=== PATIENT | male | born 1945 | race African-American/Black ===

== ENCOUNTER 2017-04-19 20:27 | Emergency (ER) | payer OTHER ==
[~2017-04-19] VITALS: Ht 170.2 cm; Wt 79.8 kg
[~2017-04-19 20:27] MED LIST: ADULT LOW DOSE81 MG PO; ALDACTONE25 MG PO; AMBIEN 5 MG TABL5 M1 PO; AMLODIPINE BESY10 MG PO; ANUSOL-HC30 GM RC; ARICEPT 5 MG TAB5 MG PO; ASPIR 8181 MG PO; ASPIRIN81 M2 PO; ATIVAN0.5 MG PO; AVODART0.5 MG PO; AZITHROMYCIN 2250 MG PO; CARAFATE 1 GM TA1 G1 PO; CARDURA1 MG PO; CARVEDILOL3.125 MG PO; CHLORTHALIDONE25 MG PO; CIPRO250 M1 PO; CITRUCEL CLEAR539 G1 PO; COLACE 100 MG100 MG PO; COZAAR 50 MG TA50 M1 PO; COZAAR 50 MG TA50 MG; DIAZEPAM 5 MG5 M1 PO; DOC-Q-LACE; DOXAZOSIN MESYLA1 GM PO; DOXEPIN 25 MG C25 MG PO; EAR WAX DROPS15 ML OT; ENALAPRIL MALEA20 MG PO; FINASTERIDE5 MG PO; FLONASE 0.05%50 MCG NASAL; FUROSEMIDE 40 M40 M1 PO; HEMORRHOIDAL HC25 MG; HYDRALAZINE 2525 M1 GT; HYDRALAZINE 2525 M1 PO; HYDRALAZINE 2525 MG PO; HYDROCHLOROTH12.5 MG PO; HYDROCODONE-AP1 EAC6 PO; HYDROXYZINE HCL10 M1; HYDROXYZINE HCL25 M2 PO; IRON325 PO; LABETALOL PO; LASIX 40 MG TAB40 M1 PO; LASIX 40 MG TAB40 M2 PO; LATANOPROST 0.2.5 ML OPHTHALMIC; LIDOCAINE VISC100 ML RECTAL; LIPITOR 10 MG10 M1 PO; LIPITOR10 MG PO; LISINOPRIL20 MG PO; LISINOPRIL40 MG; LISINOPRIL40 MG PO; LORATIDINE 10 M10 M1 PO; LORTAB 5-500 T1 EAC1 PO; MEDROLDOSEPACK PO; MELATONIN3 MG PO; MICONAZOLE NITR45 G1; MIRALAX17 GM PO; MIRALAX255 GM PO; NAMENDA XR21 MG PO; NAPROSYN500 MG PO; NEURONTIN 300300 M1 PO; NEXIUM 40 MG CA40 M1 PO; NEXIUM40 MG PO; NORCO 5-325 TA1 EACH PO; NORVASC10 MG PO; NORVASC5 MG PO; NYSTATIN 1100000 U/M; PAROXETINE HCL10 MG PO; PATADAY2.5 ML OPHTHALMIC; PERCOCET 7.5-31 EACH PO; PHENERGAN 25 MG25 MG PO; PINDOLOL10 MG PO; POLYETHYLENE G255 GM PO; PROMETHAZINE-C120 ML PO; PROSCAR 5MG TABL5 M1 PO; PROSCAR 5MG TABL5 MG PO; PROTONIX40 M1 PO; RANITIDINE 150150 M1 PO; RAPAFLO8 MG; RAPAFLO8 MG PO; REGLAN 10 MG TA10 MG PO; RESTORIL15 MG PO; TAMSULOSIN HCL0.4 MG PO; TESSALON200 MG PO; TOVIAZ8 MG PO; TRAMADOL 50 MG50 MG PO; TRIAMCINOLONE A80 G2 PER TUBE; TUMS CHEWA500 MG/11 PO; TYLENOL PM EX-1 EACH PO; TYLENOL325 MG PO; VALIUM2 MG; VALIUM2 MG PO; VALIUM5 MG PO; VENTOLIN HFA 1818 GM INH; VESICARE10 M1 PO; VITAMIN B-12500 MCG PO; VITAMIN D-32000 UNIT PO; VITAMIN D1000 UNI1 PO; VITAMIN D31000 UNI2 PO; ZOFRAN ODT4 MG PO; ZPAK PO; ZYRTEC10 M5 PO; claritin PO
[2017-04-19] MEDS ORDERED: HYDROCODONE-AP1 EAC6 PO (22:13)
[2017-04-19 22:30] VITALS: BP 142/66
[2017-04-19] MEDS ORDERED: APAP650 PO (23:27)
== END 2017-04-20 01:00 | disposition home or self-care (01) ==
LOC: ER 20:27
DX: S52.511A Displaced fracture of right radial styloid process, initial encounter for closed fracture (principal); S09.90XA Unspecified injury of head, initial encounter; W19.XXXA Unspecified fall, initial encounter; Y93.89 Activity, other specified; Y92.89 Other specified places as the place of occurrence of the external cause; Y99.8 Other external cause status; I12.9 Hypertensive chronic kidney disease with stage 1 through stage 4 chronic kidney disease, or unspecified chronic kidney disease; N18.3 Chronic kidney disease, stage 3 (moderate); F32.9 Major depressive disorder, single episode, unspecified; E11.22 Type 2 diabetes mellitus with diabetic chronic kidney disease; M19.90 Unspecified osteoarthritis, unspecified site; K21.9 Gastro-esophageal reflux disease without esophagitis; M17.11 Unilateral primary osteoarthritis, right knee; F03.90 Unspecified dementia, unspecified severity, without behavioral disturbance, psychotic disturbance, mood disturbance, and anxiety; Z88.0 Allergy status to penicillin; Z88.2 Allergy status to sulfonamides

== ENCOUNTER 2017-08-07 21:30 | Emergency (ER) | payer OTHER ==
[~2017-08-07] VITALS: Ht 170.2 cm; Wt 79.8 kg
[~2017-08-07 21:30] MED LIST changes: +APAP650 PO
[2017-08-07] MEDS ORDERED: NYAMYC15 GM TOP (22:18)
[2017-08-07 22:48] LABS: URINE BILIRUBIN NEGATIVE (Negative); URINE BLOOD NEGATIVE (Negative); URINE CLARITY CLEAR; URINE COLOR YELLOW; URINE GLUCOSE-RANDOM* NEGATIVE (Negative); URINE KETONES NEGATIVE (Negative); URINE NITRITE-REFLEX NEGATIVE (Negative); URINE PROTEIN (DIPSTICK) 1+ (Negative); URINE SPECIFIC GRAVITY 1.015 (1.005-1.035); URINE UROBILINOGEN 0.2 E.U./dl (0.2-1.0)
[2017-08-07 22:49] LABS: URINE LEUKOCYTES-REFLEX 1+ (Negative)
[2017-08-07 22:59] LABS: BACTERIA-REFLEX None Seen /HPF (None Seen); CASTS None Seen /LPF (None Seen); CRYSTALS None Seen /LPF (None Seen); MUCUS None Seen strn/LPF (None Seen); SQUAMOUS None Seen /LPF (0-3); URINE RBC None Seen /HPF (0-2); URINE WBC-REFLEX 0-5 Rare /HPF (0-5)
[2017-08-07 23:20] VITALS: BP 125/60
== END 2017-08-07 23:23 | disposition home or self-care (01) ==
LOC: ER 21:30
PROVIDERS: Emergency Medicine
DX: B37.2 Candidiasis of skin and nail (principal); I12.9 Hypertensive chronic kidney disease with stage 1 through stage 4 chronic kidney disease, or unspecified chronic kidney disease; E11.22 Type 2 diabetes mellitus with diabetic chronic kidney disease; N18.3 Chronic kidney disease, stage 3 (moderate); N40.0 Benign prostatic hyperplasia without lower urinary tract symptoms; I25.10 Atherosclerotic heart disease of native coronary artery without angina pectoris; E78.5 Hyperlipidemia, unspecified; K21.9 Gastro-esophageal reflux disease without esophagitis; Z88.0 Allergy status to penicillin; Z88.2 Allergy status to sulfonamides

== ENCOUNTER 2017-09-05 19:44 | Emergency (ER) | payer OTHER ==
[~2017-09-05] VITALS: Ht 170.2 cm; Wt 80.7 kg
[~2017-09-05 19:44] MED LIST changes: +NYAMYC15 GM TOP
[2017-09-05 19:45] VITALS: BP 128/58
== END 2017-09-05 20:46 | disposition home or self-care (01) ==
LOC: ER 19:44
DX: M79.652 Pain in left thigh (principal); E11.22 Type 2 diabetes mellitus with diabetic chronic kidney disease; I12.9 Hypertensive chronic kidney disease with stage 1 through stage 4 chronic kidney disease, or unspecified chronic kidney disease; N18.3 Chronic kidney disease, stage 3 (moderate); H40.9 Unspecified glaucoma; F32.9 Major depressive disorder, single episode, unspecified; I25.10 Atherosclerotic heart disease of native coronary artery without angina pectoris; E78.5 Hyperlipidemia, unspecified; M19.90 Unspecified osteoarthritis, unspecified site; K21.9 Gastro-esophageal reflux disease without esophagitis; Z88.0 Allergy status to penicillin; Z88.1 Allergy status to other antibiotic agents; W01.0XXA Fall on same level from slipping, tripping and stumbling without subsequent striking against object, initial encounter; Y93.89 Activity, other specified; Y92.89 Other specified places as the place of occurrence of the external cause; Y99.8 Other external cause status

== ENCOUNTER 2017-11-17 22:17 | Inpatient (IN) | payer OTHER ==
[~2017-11-17] VITALS: Ht 172.7 cm; Wt 82.0 kg
--- NOTE | ~2017-11-17 | HC ---
[facility] [place] [address] CONSULTATION Name[facility] Room #: 209-P [facility] IN M.R.#: [id number] Admission: 11/17/17 Attend Phys: Fuad Vail DO Discharge: 11/18/17 Date of : 47 Report #: [id number] THIS REPORT FOR: //name// CC: FAM unknown Fuad Vail REASON FOR CONSULTATION: Chronic kidney disease. REASON FOR THE PRESENTATION: Chest pain. HISTORY OF PRESENT ILLNESS: A 71-year-old with past medical history of chronic kidney disease, baseline creatinine around 2.5. He presented to the Emergency Room complaining of left-sided chest pain. This has been going on with him for the last 6 days. No nausea or vomiting. No radiation. He sees Dr. Scanlon in my clinic and he last saw him a couple of months ago. Creatinine at that time was 2.9. PAST MEDICAL HISTORY: 1. Chronic kidney disease. 2. Benign prostatic hypertrophy. 3. Diabetes mellitus. 4. Coronary artery disease. 5. Ulcerative colitis. ALLERGIES: PENICILLIN, SULFA. SOCIAL HISTORY: . Retired. No drug or alcohol abuse. FAMILY HISTORY: No known chronic kidney disease. MEDICATIONS: 1. Aspirin. 2. Losartan. 3. Carafate. 4. Chlorthalidone. REVIEW OF SYSTEMS: GENERAL: No fever or chills. CARDIOVASCULAR: Significant for chest pain, but no palpitation. PULMONARY: No cough or hemoptysis. GASTROINTESTINAL: No nausea or vomiting. GENITOURINARY: No frequency or urgency. SKIN: No rash or ulcerations. PHYSICAL EXAMINATION: GENERAL: He is alert, oriented, in no apparent distress. VITAL SIGNS: Blood pressure is 144/61, temperature 36.4. [facility] [address] [place] [address] CONSULTATION Name: [facility] WALSH [facility] Room #: 209-P [facility] IN M.R.#: [id number] Admission: 11/17/17 Attend Phys: Fuad Vail DO Discharge: 11/18/17 Date of : 47 Report #: [id number] HEAD AND NECK: No jugular venous distention or thyromegaly. CHEST: Clear to auscultation bilaterally. CARDIOVASCULAR: Regular, with no rub detected. ABDOMEN: Soft, nontender, no hepatosplenomegaly. LOWER EXTREMITIES: +2 edema. LABORATORY DATA: Reviewed. Creatinine is down to 2.6. Chest x-ray reviewed, no pulmonary edema. ASSESSMENT, IMPRESSION, PLAN: 1. Chronic kidney disease at baseline. 2. Hypertension. 3. Hyperlipidemia. 4. Nonspecific chest pain. 5. From the renal perspective, he is at his baseline. Continue with the same medications for now. 6. Resume his blood pressure medications. 7. Avoid nephrotoxins. 8. Nuclear studies to evaluate his chest pain. Further followup will be dictated accordingly. <ELECTRONICALLY SIGNED> By: Joel Miller MD 11/19/17 0817 1557 20 Joel Miller, /nt
--- NOTE | ~2017-11-17 | HC ---
[facility] [place] [address] CONSULTATION Name: RENETTA WALSH Room #: 209-P ADM IN M.R.#: [id number] Admission: 11/17/17 Attend Phys: Fuad Vail DO Discharge: Date of : 47 Report #: [id number] THIS REPORT FOR: //name// CC: FAM unknown Fuad Vail HISTORY OF PRESENT ILLNESS: The patient is a 71-year-old male originally from [place], has been in the [place] 30 years. He has lots of medical records here at [facility] with multiple ER visits. Followed by the [facility] and has seen Cardiology back in 2013. He has chronic kidney disease and his creatinine when he came in was 3.0, but he comes in with left-sided chest pain that he states has been relatively constant for 4 days now and still describing pain, although he seems very comfortable. There is some right shoulder issue in addition. He states his diabetes is diet controlled. He does take blood pressure medicine and cholesterol medicine he states. He does not recall the last cardiac workup. It looks like Cardiology saw him in 2013 in the hospital here. Does not appear to have an exertional component to this. He follows with Nephrology, Dr. Scanlon. No syncope or presyncope. HOME MEDICATIONS: Chlorthalidone 12.5, baby aspirin, losartan 50, vitamin D3, B12, Carafate. PAST MEDICAL HISTORY: Positive for chronic kidney disease stage 4, hypertension, diabetes diet controlled, BPH, history of cataracts and glaucoma, mild coronary disease from a cardiac catheterization in April 2013, ulcerative colitis with no recent GI bleeds, reflux, chronic pain. He ambulates with a cane due to some unsteadiness. DJD. ALLERGIES: PENICILLIN and SULFA. SOCIAL HISTORY: He is , 7 children. He is retired. No alcohol or tobacco use. FAMILY HISTORY: He notes is negative for premature coronary disease. REVIEW OF SYSTEMS: Essentially negative. Some nocturia and unsteadiness with a cane usage. PHYSICAL EXAMINATION: VITAL SIGNS: Blood pressure is 140/60, pulse is 60 and regular. HEENT: Eyes reveal xanthelasmas. Pharynx is clear. NECK: Shows preserved upstrokes without JVD or bruits. LUNGS: Clear. CARDIOVASCULAR: Regular rate and rhythm, S1, S2 without murmur or gallop. ABDOMEN: Soft, nontender. Does have slight tenderness in the midepigastric area. No HSM. [facility] [address] [place] [address] CONSULTATION Name: [facility] WALSH [facility] Room #: 209-P [facility] IN M.R.#: [id number] Admission: 11/17/17 Attend Phys: Fuad Vail DO Discharge: Date of : 47 Report #: [id number] EXTREMITIES: Reveal 1+ peripheral edema, more at the ankle and pedal area. SKIN: Warm and dry without any skin breakdown or ulcers. NEUROLOGIC: Intact. MUSCULOSKELETAL: Generalized arthritic changes. He does ambulate with the cane. ASSESSMENT: 1. Chest pain, I suspect noncardiac. 2. Hypertension. 3. Diabetes. 4. Hypercholesterolemia. Check lipid. 5. Degenerative joint disease. 6. Chronic kidney disease stage 4, creatinine 3.0, now 2.6. 7. Reflux. 8. Anemia. RECOMMENDATIONS AND PLAN: We will proceed with repeat echo Doppler to assess LV function, valvular status and LV. Nuclear stress testing, 50% LAD lesion from a catheterization in March 2013. Although this does not necessarily appear to be cardiac, but do need to rule out significant progression of disease. Laboratory work is lipids are favorable. His LDL is 61. His total cholesterol is 111. His troponin is less than 0.04. We do not need to run anymore troponins. His creatinine is 3.0 and then 2.6. His sugar looks to be well controlled in addition. Liver function tests are normal. H and H is 11.6 and 34.8, white count 5.0. We will proceed with a nuclear stress test and echo Doppler and we will continue to follow with you. This has been discussed with the patient. I would cancel any further troponins. By: 0859 [id number] All Faulkner MD, [facility] /nt
--- NOTE | ~2017-11-17 | EKG ---
[address] [place] [address] ELECTROCARDIOGRAM REPORT Name: NICORENETTA PAIZWENDY Room #: PRE M.R.#: [id number] Admission: Attend Phys: Discharge: Date of : 47 Report #: [id number] THIS REPORT FOR: //name// [facility] ED Test Date: 2017-11-17 Test Time: 22:26:49 Pat Name: RENETTA WALSH Department: Room: Gender: Diet Consultant: DAVID : 1945 Requested By: Nelli Ly Order Number: [id number] MD: Kendell Otero Measurements Intervals [place] Rate: 52 P: 42 PA: 172 QRS: 48 QRSD: 93 T: 42 QT: 456 QTc: 424 Interpretive Statements Sinus rhythm Compared to ECG 12/17/2015 15:35:17 No significant changes Electronically Signed On 11-17-2017 23:00:09 CDT by Kendell Otero [email or web address] <ELECTRONICALLY SIGNED> By: Kendell Otero MD 11/17/17 2300 2226 Kendell Otero MD /CARLOS
--- NOTE | ~2017-11-17 | EKG ---
[address] [address] ELECTROCARDIOGRAM REPORT Name: RENETTA WALSH Room #: 209-P ADM IN M.R.#: [id number] Admission: 11/17/17 Attend Phys: Fuad Vail DO Discharge: Date of : 47 Report #: [id number] THIS REPORT FOR: //name// [facility] Test Date: 2017-11-18 Test Time: 05:38:59 Pat Name: RENETTA WALSH Department: Room: 209 P Gender: M Cardiology Clinical Nurse Specialist: PILI : 1945 Requested By: Allyson Frausto Order Number: [id number] MD: Kendell Otero Measurements Intervals [place] Rate: 48 P: 60 MT: 202 QRS: 75 QRSD: 96 T: 42 QT: 467 QTc: 418 Interpretive Statements Sinus bradycardia Compared to ECG 11/17/2017 22:26:49 Sinus rhythm no longer present Electronically Signed On 11-18-2017 7:32:59 CDT by Kendell Otero [email or web address] <ELECTRONICALLY SIGNED> By: Kendell Otero MD 11/18/17 0732 7 Kendell Otero MD /CARLOS
--- NOTE | ~2017-11-17 | 2DMMODE ---
[facility] [address] [place] [address] 2 D/M-MODE ECHOCARDIOGRAM Name: [facility] Room #: 209-P ADM IN M.R.#: [id number] Admission: 11/17/17 Attend Phys: Fuad Vail, Discharge: Date of : 47 Date of Service: 11/18/17 1049 Report #: [id number] THIS REPORT FOR: //name// APPROVED REPORT Study performed: 11/18/2017 09:27:44 EXAM: Comprehensive 2D, Doppler, and color-flow Echocardiogram Patient Location: Echo lab Room #: 209 Status: routine BSA: 1.91 HR: 53 bpm BP: 144/61 mmHg Rhythm: NSR Other Information Study Quality: Adequate Indications Dyspnea Chest Pain Hx: DM, HTN, HLD, CAD 2D Dimensions RVDd: 33.93 mm LVEF(%): 55.53 (>50%) IVSd: 12.27 (7-11mm) LVOT Diam: 20.49 (18-24mm) LVDd: 40.81 mm PWd: 10.80 (7-11mm) Ascending Ao: 40.30 (22-36mm) LVDs: 29.16 (25-40mm) Aortic Root: 38.91 mm Gonsalez's LVEF: 55.53 % Volumes Left Atrial Volume (Systole) Single Plane 4CH: 31.15 mL Single Plane 2CH: 33.71 mL LA ESV Index: 19.00 mL/m2 Aortic Valve AoV Peak Sonu.: 1.35 m/s AO Peak Gr.: 7.34 mmHg LVOT Max P.30 mmHg LVOT Max V: 1.25 m/s AYANNA Vmax: 3.05 cm2 AI Vmax: 2.69 m/s AI [place]: 1.38 m/s2 [facility] [place] [address] 2 D/M-MODE ECHOCARDIOGRAM Name: ARTHURBERNABERENETTA [facility] Room #: 209-P [facility] IN M.R.#: [id number] Admission: 11/17/17 Attend Phys: Fuad Vail, Discharge: Date of : 47 Date of Service: 11/18/17 1049 Report #: [id number] AI PHT: 566.01 ms Mitral Valve E/A Ratio: 0.8 MV Decel. Time: 277.20 ms MV E Max Sonu.: 0.74 m/s MV A Sonu.: 0.90 m/s MV PHT: 80.39 ms Pulmonary Valve PV Peak Sonu.: 0.72 m/s PV Peak Gr.: 2.05 mmHg Tricuspid Valve TR Peak Sonu.: 2.38 m/s RAP Estimate: 5.00 mmHg TR Peak Gr.: 22.74 mmHg PA Pressure: 28.00 mmHg Left Ventricle The left ventricle is normal size. There is normal left ventricular wall thickness. The left ventricular systolic function is normal. LVEF is 55-60%. Grade I - abnormal relaxation pattern. Right Ventricle The right ventricle is normal size. The right ventricular systolic function is normal. Atria The left atrium size is normal. The right atrium size is normal. Aortic Valve The Aortic valve is sclerotic. Mild aortic regurgitation. Eccentric jet. There is no aortic valvular stenosis. Mitral Valve Mild mitral annular calcification. Trace mitral regurgitation. No evidence of mitral valve stenosis. Tricuspid Valve The tricuspid valve is normal in structure. Mild tricuspid regurgitation. Pulmonic Valve Pulmonic valve is not well visualized, but appear grossly normal in structure. There is no pulmonic valvular regurgitation. [address] [address] 2 D/M-MODE ECHOCARDIOGRAM Name: NICORENETTA [facility] Room #: 209-P [facility] IN M.R.#: [id number] Admission: 11/17/17 Attend Phys: Fuad Vail, Discharge: Date of : 47 Date of Service: 11/18/17 1049 Report #: [id number] Great Vessels Aortic root is dilated at 3.9 cm. Ascending aorta is dilated at 4.0 cm. IVC is normal in size and collapses >50% with inspiration. Pericardium There is no pericardial effusion. <Conclusion> The left ventricle is normal size. LVEF is 55-60%. Grade I - abnormal relaxation pattern. The right ventricle is normal size. The left atrium size is normal. The Aortic valve is sclerotic. Mild aortic regurgitation. Eccentric jet. There is no aortic valvular stenosis. Trace mitral regurgitation. Mild tricuspid regurgitation. Aortic root is dilated at 3.9 cm. There is no pericardial effusion. <ELECTRONICALLY SIGNED> By: All Faulkner MD, FACC 11/18/17 1049 1049 1049 All Faulkner MD, FACC /INF
[2017-11-17 22:27] VITALS: BP 139/71
[2017-11-17 22:51] LABS: HEMATOCRIT 34.8 % (42.0-52.0); HEMOGLOBIN 11.6 gm/dL (14.0-18.0); MCH 31.6 pg (26.0-34.0); MCHC 33.2 g/dL (28.0-37.0); MCV 95.1 fL (80.0-100.0); PLATELET COUNT 202 thou/uL (150-400); RBC 3.66 mil/uL (4.50-6.00); RDW 13.6 % (10.5-14.5)
[2017-11-17 22:57] LABS: ANION GAP 6 mmol/L (7-16); BUN 55 mg/dL (7-18); CALCIUM 8.3 mg/dL (8.5-10.1); CHLORIDE 106 mmol/L (98-107); CO2 23 mmol/L (21-32); GLUCOSE 113 mg/dL (74-106); POTASSIUM 5.1 mmol/L (3.5-5.1); SODIUM 135 mmol/L (136-145)
[2017-11-17 23:06] LABS: ALBUMIN 3.3 g/dL (3.4-5.0); SGOT 24 U/L (15-37); SGPT 14 U/L (30-65); TOTAL BILIRUBIN 0.2 mg/dL (<0.1-1.0); TOTAL PROTEIN 6.8 g/dL (6.4-8.2); TROPONIN-I < 0.04 ng/mL (<0.06)
[2017-11-17 23:23] LABS: ABSOLUTE NEUTROPHILS 3.3 thou/uL (1.4-8.2); ANISOCYTOSIS SLIGHT
[2017-11-18] VITALS (7 sets, daily range): BP systolic 116–144; BP diastolic 52–69
[2017-11-18 05:16] LABS: ANION GAP 7 mmol/L (7-16); BUN 51 mg/dL (7-18); CALCIUM 8.3 mg/dL (8.5-10.1); CHLORIDE 109 mmol/L (98-107); CHOLESTEROL 111 mg/dL (<200); CO2 24 mmol/L (21-32); CREATININE 2.6 mg/dL (0.7-1.3); GLUCOSE 87 mg/dL (74-106); HDL CHOLESTEROL 36 mg/dL (>40); LDL CHOLESTEROL 61 mg/dL (<100); POTASSIUM 4.3 mmol/L (3.5-5.1); SODIUM 140 mmol/L (136-145); TC:HDL 3.1 Ratio (Not establshd); TRIGLYCERIDE 72 mg/dL (<150); VLDL 14 mg/dL (<40)
[2017-11-18 05:17] LABS: SERUM ASSESSMENT Clear
[2017-11-19 02:09] LABS: GLYCOHEMOGLOBIN (HGB A1C) 5.7 % (4.8-5.6)
== END 2017-11-18 19:47 | disposition home or self-care (01) | DRG 313 ==
LOC: ER 22:17 → EROBS 23:36 → 2N 23:36
PROVIDERS: Nurse Practitioner Acute Care; Physician Assistant
DX: R07.89 Other chest pain (principal); N17.9 Acute kidney failure, unspecified; N18.4 Chronic kidney disease, stage 4 (severe); I12.9 Hypertensive chronic kidney disease with stage 1 through stage 4 chronic kidney disease, or unspecified chronic kidney disease; E78.5 Hyperlipidemia, unspecified; M19.90 Unspecified osteoarthritis, unspecified site; F03.90 Unspecified dementia, unspecified severity, without behavioral disturbance, psychotic disturbance, mood disturbance, and anxiety; E11.22 Type 2 diabetes mellitus with diabetic chronic kidney disease; I25.10 Atherosclerotic heart disease of native coronary artery without angina pectoris; D64.9 Anemia, unspecified; N40.0 Benign prostatic hyperplasia without lower urinary tract symptoms; H40.9 Unspecified glaucoma; F32.9 Major depressive disorder, single episode, unspecified; K21.9 Gastro-esophageal reflux disease without esophagitis; Z79.82 Long term (current) use of aspirin; Z79.899 Other long term (current) drug therapy; Z88.0 Allergy status to penicillin; Z88.2 Allergy status to sulfonamides

== ENCOUNTER 2017-12-08 16:38 | Emergency (ER) | payer OTHER ==
[~2017-12-08] VITALS: Ht 170.2 cm; Wt 80.7 kg
[2017-12-08 16:41] VITALS: BP 134/65
[2017-12-08] MEDS ORDERED: CLARITIN10 MG PO (17:58)
== END 2017-12-08 18:13 | disposition home or self-care (01) ==
LOC: ER 16:38
DX: L29.9 Pruritus, unspecified (principal); R07.9 Chest pain, unspecified; I12.9 Hypertensive chronic kidney disease with stage 1 through stage 4 chronic kidney disease, or unspecified chronic kidney disease; E11.22 Type 2 diabetes mellitus with diabetic chronic kidney disease; N18.3 Chronic kidney disease, stage 3 (moderate); I25.10 Atherosclerotic heart disease of native coronary artery without angina pectoris; F32.9 Major depressive disorder, single episode, unspecified; E78.5 Hyperlipidemia, unspecified; K21.9 Gastro-esophageal reflux disease without esophagitis; Z88.0 Allergy status to penicillin; Z88.2 Allergy status to sulfonamides

== ENCOUNTER 2018-06-08 16:49 | Emergency (ER) | payer OTHER ==
[~2018-06-08] VITALS: Ht 170.2 cm; Wt 81.7 kg
[~2018-06-08 16:49] MED LIST changes: +CLARITIN10 MG PO
[2018-06-08 16:53] VITALS: BP 116/67
[2018-06-08] MEDS ORDERED: PROTONIX40 M1 PO (17:12)
[2018-06-08] MEDS ORDERED: DOXEPIN 10 MG C10 MG PO (17:13)
[2018-06-08] MEDS ORDERED: NAMENDA 5 MG TAB5 M1 PO (17:13)
[2018-06-08] MEDS ORDERED: FINASTERIDE5 MG PO (17:13)
[2018-06-08] MEDS ORDERED: LIPITOR10 MG PO (17:14)
[2018-06-08] MEDS ORDERED: SENNA LAXATIVE1 EACH PO (17:14)
[2018-06-08] MEDS ORDERED: CELEXA20 MG PO (17:15)
[2018-06-08] MEDS ORDERED: IBUPROFEN 600600 M1 PO (17:43)
[2018-06-09] MEDS ORDERED: GUAIFEN-CODEINE10 ML PO (16:35)
[2018-06-09] MEDS ORDERED: MOBIC15 MG PO (16:35)
== END 2018-06-08 17:54 | disposition home or self-care (01) ==
LOC: ER 16:49
DX: J09.X2 Influenza due to identified novel influenza A virus with other respiratory manifestations (principal); I12.9 Hypertensive chronic kidney disease with stage 1 through stage 4 chronic kidney disease, or unspecified chronic kidney disease; E11.22 Type 2 diabetes mellitus with diabetic chronic kidney disease; N18.3 Chronic kidney disease, stage 3 (moderate); M19.90 Unspecified osteoarthritis, unspecified site; E78.5 Hyperlipidemia, unspecified

== ENCOUNTER 2018-06-09 15:28 | Emergency (ER) | payer OTHER ==
[~2018-06-09] VITALS: Ht 170.2 cm; Wt 81.7 kg
--- NOTE | ~2018-06-09 | EKG ---
[place] [address] [place] [address] ELECTROCARDIOGRAM REPORT Name: NICORENETTA Room #: ELLIS Egan#: [id number] Admission: 06/09/18 Attend Phys: Discharge: 06/09/18 Date of : 47 Report #: [id number] THIS REPORT FOR: //name// [facility] ED Test Date: 2018-06-09 Test Time: 15:55:05 Pat Name: RENETTA WALSH Department: Room: Gender: M Human Resources Consultant: : 1945 Requested By: Yeimi Jade Order Number: [id number] MD: Jemal Perales Measurements Intervals [place] Rate: 71 P: 44 ID: 150 QRS: 65 QRSD: 96 T: 50 QT: 394 QTc: 429 Interpretive Statements Sinus rhythm Early transition Nonspecific ST-T wave changes Compared to ECG 11/18/2017 05:38:59 Sinus bradycardia no longer present Electronically Signed On 06-09-2018 17:24:46 FOUNDER / CEO by Jemal Perales [email or web address] <ELECTRONICALLY SIGNED> By: Jemal Perales MD 06/09/18 1724 1555 1555 Jemal Perales MD /CARLOS
[~2018-06-09 15:28] MED LIST changes: +CELEXA20 MG PO; +DOXEPIN 10 MG C10 MG PO; +IBUPROFEN 600600 M1 PO; +NAMENDA 5 MG TAB5 M1 PO; +SENNA LAXATIVE1 EACH PO
[2018-06-09] MEDS ORDERED: MOBIC15 MG PO (16:35)
[2018-06-09] MEDS ORDERED: GUAIFEN-CODEINE10 ML PO (16:35)
[2018-06-09 16:41] VITALS: BP 147/69
== END 2018-06-09 17:08 | disposition home or self-care (01) ==
LOC: ER 15:28
DX: J09.X2 Influenza due to identified novel influenza A virus with other respiratory manifestations (principal); R05 Cough; M79.10 Myalgia, unspecified site; I12.9 Hypertensive chronic kidney disease with stage 1 through stage 4 chronic kidney disease, or unspecified chronic kidney disease; E11.22 Type 2 diabetes mellitus with diabetic chronic kidney disease; N18.3 Chronic kidney disease, stage 3 (moderate); F32.9 Major depressive disorder, single episode, unspecified; I25.10 Atherosclerotic heart disease of native coronary artery without angina pectoris; E78.5 Hyperlipidemia, unspecified; M19.90 Unspecified osteoarthritis, unspecified site; K21.9 Gastro-esophageal reflux disease without esophagitis; F03.90 Unspecified dementia, unspecified severity, without behavioral disturbance, psychotic disturbance, mood disturbance, and anxiety; M17.11 Unilateral primary osteoarthritis, right knee; Z88.0 Allergy status to penicillin; Z95.5 Presence of coronary angioplasty implant and graft; Z88.2 Allergy status to sulfonamides

== ENCOUNTER 2018-08-01 18:16 | Emergency (ER) | payer OTHER ==
[~2018-08-01] VITALS: Ht 170.2 cm; Wt 79.8 kg
[~2018-08-01 18:16] MED LIST changes: +GUAIFEN-CODEINE10 ML PO; +MOBIC15 MG PO
[2018-08-01 18:44] LABS: ABSOLUTE NEUTROPHILS 5.1 thou/uL (1.4-8.2); BASOPHILS 0.5 % (0.0-2.0); HEMATOCRIT 37.9 % (42.0-52.0); HEMOGLOBIN 12.5 gm/dL (14.0-18.0); MCH 31.3 pg (26.0-34.0); MONOCYTES 3.4 % (1.0-8.0); PLATELET COUNT 255 thou/uL (150-400); POLYS 75.1 % (36.0-66.0); RBC 3.99 mil/uL (4.50-6.00); RDW 14.5 % (10.5-14.5); WBC 6.7 thou/uL (4.0-11.0)
[2018-08-01 18:49] LABS: ANION GAP 14 mmol/L (7-16); BUN 66 mg/dL (7-18); CALCIUM 9.1 mg/dL (8.5-10.1); CHLORIDE 105 mmol/L (98-107); CO2 21 mmol/L (21-32); CREATININE 3.2 mg/dL (0.7-1.3); GLUCOSE 210 mg/dL (74-106); POTASSIUM 4.4 mmol/L (3.5-5.1); SODIUM 140 mmol/L (136-145)
[2018-08-01 19:01] LABS: ALBUMIN 3.6 g/dL (3.4-5.0); SGOT 17 U/L (15-37); SGPT 16 U/L (30-65); TOTAL BILIRUBIN 0.3 mg/dL (<0.1-1.0); TOTAL PROTEIN 7.6 g/dL (6.4-8.2); TROPONIN-I <0.06 ng/mL (<0.06)
[2018-08-01 20:50] VITALS: BP 122/67
--- NOTE | 2018-08-02 12:01 | EKG ---
[facility] [employer] [address] ELECTROCARDIOGRAM REPORT Name: NICORENETTA Room #: ELLIS Egan#: [id number] Admission: 08/01/18 Attend Phys: Discharge: 08/01/18 Date of : 47 Report #: [id number] THIS REPORT FOR: //name// [facility] ED Test Date: 2018-08-01 Test Time: 18:10:43 Pat Name: RENETTA WALSH Department: Room: Gender: M Pot Washer: : 1945 Requested By: Christy Borrero Order Number: [id number] MD: Josesito Conti Measurements Intervals [place] Rate: 87 P: 33 CA: 160 QRS: 47 QRSD: 92 T: -17 QT: 400 QTc: 482 Interpretive Statements Sinus rhythm Cannot rule out Inferior infarct, age indeterminate Compared to ECG 06/09/2018 15:55:05 Inferior Q waves are slightly more prominent Electronically Signed On 08-02-2018 12:01:34 MALTSTER by Josesito Conti [email or web address] <ELECTRONICALLY SIGNED> By: Josesito Conti MD, [facility] 08/02/18 1201 D: [id number] Josesito Conti MD, FACC /EPI
== END 2018-08-01 20:35 | disposition home or self-care (01) ==
LOC: ER 18:16
PROVIDERS: Physician Assistant
DX: R06.02 Shortness of breath (principal); I12.9 Hypertensive chronic kidney disease with stage 1 through stage 4 chronic kidney disease, or unspecified chronic kidney disease; E11.22 Type 2 diabetes mellitus with diabetic chronic kidney disease; N18.3 Chronic kidney disease, stage 3 (moderate); F32.9 Major depressive disorder, single episode, unspecified; E78.5 Hyperlipidemia, unspecified; K21.9 Gastro-esophageal reflux disease without esophagitis; F03.90 Unspecified dementia, unspecified severity, without behavioral disturbance, psychotic disturbance, mood disturbance, and anxiety; Z88.0 Allergy status to penicillin; Z88.2 Allergy status to sulfonamides

== ENCOUNTER 2019-08-30 19:25 | Inpatient (IN) | payer OTHER ==
[~2019-08-30] VITALS: Ht 261.6 cm; Wt 72.6 kg
[2019-08-30 19:35] VITALS: BP 116/65
[2019-08-30 21:41] LABS: ABSOLUTE NEUTROPHILS 5.5 thou/uL (1.4-8.2); EOSINOPHILS 1.1 % (0.0-3.0); HEMATOCRIT 37.3 % (42.0-52.0); HEMOGLOBIN 12.2 gm/dL (14.0-18.0); LYMPHOCYTES 14.9 % (24.0-44.0); MCH 31.1 pg (26.0-34.0); MCHC 32.7 g/dL (28.0-37.0); MONOCYTES 7.7 % (1.0-8.0); PLATELET COUNT 250 thou/uL (150-400); POLYS 75.3 % (36.0-66.0); RBC 3.93 mil/uL (4.50-6.00); RDW 14.4 % (10.5-14.5); WBC 7.3 thou/uL (4.0-11.0)
[2019-08-30 21:52] LABS: CALCIUM 9.2 mg/dL (8.5-10.1); CREATININE 7.9 mg/dL (0.7-1.3); POTASSIUM 3.5 mmol/L (3.5-5.1)
[2019-08-30 21:54] LABS: ALBUMIN 3.7 g/dL (3.4-5.0); TOTAL BILIRUBIN 0.4 mg/dL (<0.1-1.0)
[2019-08-30 23:04] LABS: URINE BILIRUBIN NEGATIVE (Negative); URINE BLOOD TRACE (Negative); URINE CLARITY CLEAR; URINE COLOR YELLOW; URINE GLUCOSE-RANDOM* NEGATIVE (Negative); URINE KETONES NEGATIVE (Negative); URINE LEUKOCYTES-REFLEX NEGATIVE (Negative); URINE NITRITE-REFLEX NEGATIVE (Negative); URINE PROTEIN (DIPSTICK) 2+ (Negative); URINE UROBILINOGEN 0.2 E.U./dl (0.2-1.0)
[2019-08-30 23:24] LABS: AMORPHOUS URATES Moderate /LPF (None Seen); BACTERIA-REFLEX 1-9 Few /HPF (None Seen); CASTS None Seen /LPF (None Seen); SQUAMOUS None Seen /LPF (0-3); URINE RBC 0-2 Rare /HPF (0-2); URINE WBC-REFLEX None Seen /HPF (0-5)
[2019-08-31 07:10] VITALS: BP 135/42
[2019-08-31 07:11] VITALS: BP 135/42
[2019-08-31 08:22] VITALS: BP 134/67
[2019-08-31 10:28] LABS: CALCIUM 9.1 mg/dL (8.5-10.1); CREATININE 7.2 mg/dL (0.7-1.3)
[2019-08-31 10:29] LABS: POTASSIUM 2.9 mmol/L (3.5-5.1)
[2019-08-31 11:10] LABS: URINE POTASSIUM-RANDOM* 17.5 mmol/L
[2019-08-31 16:45] VITALS: BP 131/59
--- NOTE | 2019-08-31 17:08 | NUR ---
Received pt from the ER pt is alert x 2 to 3 forgets his limitation. REfused FC insertion, strict I and O done uses the urinal. Max assists of 2 as per PT eval. per the pt he informed the ER of his generalized itching, informed MD medication given. Low K 2.9 informed MD replacements PO being done. Diet is well tolerated. POC followed.
[2019-08-31 20:46] VITALS: BP 112/53
--- NOTE | 2019-09-01 03:45 | NUR ---
Assumed pt care @1915. pt a&ox4 but can be forgetful and confused. pt used the urinal overnight and was incont on urine a few times. pt has pink urine with a few blood cloths in. v/s stable. no s/s of distress. will cont to monitor
[2019-09-01 06:11] LABS: CALCIUM 8.2 mg/dL (8.5-10.1); PHOSPHORUS 4.9 mg/dL (2.5-4.9)
[2019-09-01 06:22] LABS: CREATININE 6.2 mg/dL (0.7-1.3)
[2019-09-01 07:22] VITALS: BP 121/52
[2019-09-01 16:32] VITALS: BP 116/60
--- NOTE | 2019-09-01 16:42 | NUR ---
PT ADMITTED RELATED TO SEVERE CHRONIC BACK PAIN, UNABLE TO AMBULATE. CM REVIEWED CHART AND SPOKE WITH CARE TEAM. CM MET WITH PT AT BEDSIDE THIS DAY. PT IS A&O X3. CM ROLE INTRODUCED. PT INDICATED HE LIVES IN A HOUSE WITH HIS SPOUSE WITH 3 STEPS TO ENTER AND NONE INSIDE. 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 PT INDICATED HE HAS 8 HRS A DAY OR PD SERVICES THROUGH [facility] BUT THAT THEY DON'T DO ANYTHING. PT INDICATED HE IS INTERESTED IN A WC FOR HOME USE AND THAT HIS CAN'T CARE FOR HIM BECAUSE SHE IS DISABLED TOO BUT THAT HE WON'T GO FOR A POST ACUTE CARE STAY. PT STATES HE SEES DR. ROBLEDO AT [facility] IN [place]. CHART INDICATED THAT PT MAY AHVE BEEN ON SERVICE TREV JIMENEZ PTA. CM TO FOLLOW INDICATED WITH DC PLANNING.
[2019-09-01 19:26] VITALS: BP 132/56
--- NOTE | 2019-09-01 20:14 | NUR ---
Assumed patient care at 0715. Vital signs have been stable. Blood sugars have required minimal coverage of 3 units Lispro at Breakfast and Lunch. No Insulin coverage needed for Dinner. Patient has been eating well. He continues on Normal Saline at 60cc per hour. He is incontinent of urine but will try to use the urinal. Patient is max assist x's 2 at this time. He has requested and received Diphenhydramine 25mg x's 2 during this shift. One dose was given 4 hours after first dose as patient was scratching himself frantically all over. Dr Yañez notified of this. Order continues at q 6 hours despite patient's request. Report given to on-coming shift.
--- NOTE | 2019-09-02 07:44 | NUR ---
PROGRESS PT NON AMBULATORY UP WITH MAX OF 2 TO BSC LARGE BM THIS SHIFT, VOIDING PER URINAL. CONFUSED AND YELLING OUT AT TIMES CALLS OUT FREQUENTLY AND DOESN'T KNOW WHAT HE WANTS. IV ANTIBIOTICS GIVEN ORDERED. SKIN C/D/I. CONTINUE TO MONITOR
[2019-09-02 07:48] VITALS: BP 132/60
[2019-09-02 12:56] VITALS: BP 132/60
[2019-09-02 13:02] LABS: ALBUMIN 3.2 g/dL (3.4-5.0); CALCIUM 8.1 mg/dL (8.5-10.1); PHOSPHORUS 3.6 mg/dL (2.5-4.9); POTASSIUM 3.9 mmol/L (3.5-5.1)
[2019-09-02 13:34] LABS: CREATININE 5.1 mg/dL (0.7-1.3)
[2019-09-02 13:49] VITALS: BP 132/60
--- NOTE | 2019-09-02 13:57 | NUR ---
DISCHARGE PLANNING. DISCHARGE TO HOME WITH HOME HEALTH SERVICES. PATIENT HH REFERRAL, DISCHARGE HOME HEALTH ORDERS/DISCHARGE SUMMARY FAXED TO [facility] PER REQUEST. CALL PLACED TO [facility], SPOKE TO FLOR TO NOTIFY. FLOR TO FACILITATE.
--- NOTE | 2019-09-02 16:24 | NUR ---
Patient was Discharged back home with son at 1530. Patient's vital signs stable; he denies pain. Both son and patient verbalized an understanding to all Discharge Instructions prior to signing paperwork. Patient and son left with all belongings except patients cell phone, which they stated "we cannot find." POC followed.
--- NOTE | 2019-09-03 14:24 | HC ---
[facility] [address] [place] [address] CONSULTATION Name: RENETTA WALSH Room #: 463-P [facility] IN M.R.#: [id number] Admission: 08/30/19 Attend Phys: Angela Yañez Discharge: 09/02/19 Date of : 47 Report #: [id number] THIS REPORT FOR: cc: SIERRA Hartman family physician/PCP [facility] - Minnie family physician/PCP Joel Miller MD ~ CC: [facility] physician/PCP Angela Yañez REASON FOR CONSULTATION: Elevated creatinine. REASON FOR PRESENTATION: Not feeling well. Numerous other complaints. HISTORY OF PRESENT ILLNESS: This is a 73-year-old with history of end-stage renal disease due to progressive hypertensive arterionephrosclerosis. He has been in different facilities lately including [facility] where he has a left AV fistula and is in the process of being prepared for hemodialysis. He reported to our facility having many issues including knees pain, low back pain, itching allover, hurting with urination. He has no nausea or vomiting. He has no fever or chills. He has no uremic symptoms. On presentation and as expected, his BUN and creatinine were elevated. Unfortunately, the patient has very poor social support. The patient was admitted to further evaluate his condition and I was consulted to manage his chronic kidney disease. PAST MEDICAL HISTORY: 1. Diabetes mellitus. 2. Hypertension. 3. Coronary artery disease. 4. Hyperlipidemia. 5. Degenerative joint disease. 6. Benign prostatic hypertrophy. 7. End-stage renal disease. PAST SURGICAL HISTORY: 1. Recent AV fistula. 2. Cataract surgery. 3. Cardiac catheterization. MEDICATIONS: 1. Pantoprazole. 2. Doxepin. 3. Atorvastatin. 4. Celexa. 5. Aspirin. ALLERGIES: SULFA AND PENICILLIN. [facility] [address] [place] [address] CONSULTATION Name: RENETTA WALSH Room #: 463-P [facility] IN M.R.#: [id number] Admission: 08/30/19 Attend Phys: Angela Rosado Otilio Discharge: 09/02/19 Date of : 47 Report #: [id number] FAMILY HISTORY: Hypertension. REVIEW OF SYSTEMS: GENERAL: No fever or chills. CARDIOVASCULAR: No chest pain or palpitation. PULMONARY: No cough or hemoptysis. GASTROINTESTINAL: No nausea or vomiting. GENITOURINARY: Occasional frequency. MUSCULOSKELETAL: As per the history of present illness. PHYSICAL EXAMINATION: GENERAL: He is alert, oriented, in no apparent distress. VITAL SIGNS: Blood pressure is 131/59, temperature 36.7. Pulse rate is 63. HEAD AND NECK: No jugular venous distention. CHEST: No crackles. CARDIOVASCULAR: No rub detected. ABDOMEN: Soft and nontender. EXTREMITIES: Lower extremities, no edema. Upper extremities, left AV fistula. LABORATORY DATA: Reviewed. Sodium 145, potassium 4, BUN is down to 137, creatinine is down to 6.2. Hemoglobin is 12.0. ASSESSMENT, IMPRESSION AND PLAN: End-stage renal disease, no plan to initiate hemodialysis. Recent worsening is due to poor social support and poor hydration status. Continue with the IV fluid. We will ask the adult protective caseworker to be involved in his care. He has very poor social support and had been hospitalized 3 times so far in the last month. <ELECTRONICALLY SIGNED> By: Jeol Miller MD 09/03/19 1424 0648 0712 Joel Miller MD /nt
== END 2019-09-02 16:00 | disposition home health service (06) | DRG 682 ==
LOC: ER 19:25 → 4W 23:28 → EROBS 23:28 → 4W 08-31 08:17 → ENTRNSPT 09-02 15:02 → EDTRNSPTSTS 09-02 15:04 → 4W 09-02 16:00
PROVIDERS: Hospitalist; Nurse Practitioner Family; Physician Assistant; ADMIT Hospitalist
DX: N17.9 Acute kidney failure, unspecified (principal); E43 Unspecified severe protein-calorie malnutrition; I12.0 Hypertensive chronic kidney disease with stage 5 chronic kidney disease or end stage renal disease; K51.90 Ulcerative colitis, unspecified, without complications; N18.6 End stage renal disease; E11.22 Type 2 diabetes mellitus with diabetic chronic kidney disease; N40.0 Benign prostatic hyperplasia without lower urinary tract symptoms; H40.9 Unspecified glaucoma; H26.9 Unspecified cataract; I25.10 Atherosclerotic heart disease of native coronary artery without angina pectoris; F32.9 Major depressive disorder, single episode, unspecified; E78.5 Hyperlipidemia, unspecified; K21.9 Gastro-esophageal reflux disease without esophagitis; M17.11 Unilateral primary osteoarthritis, right knee; M54.9 Dorsalgia, unspecified; F03.90 Unspecified dementia, unspecified severity, without behavioral disturbance, psychotic disturbance, mood disturbance, and anxiety; G47.00 Insomnia, unspecified; K59.00 Constipation, unspecified; Z87.19 Personal history of other diseases of the digestive system; Z79.82 Long term (current) use of aspirin; Z79.891 Long term (current) use of opiate analgesic; Z79.899 Other long term (current) drug therapy; Z88.0 Allergy status to penicillin; Z88.2 Allergy status to sulfonamides; Z98.49 Cataract extraction status, unspecified eye
CPT/HCPCS: 10040